=== PATIENT | female | born 1995 | race Caucasian/White ===

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

== ENCOUNTER 2017-05-11 23:55 | Emergency (ER) | payer OTHER ==
[~2017-05-11] VITALS: Ht 157.5 cm; Wt 121.6 kg
[2017-05-11 23:58] VITALS: BP 130/74
--- NOTE | 2017-05-12 00:02 | NUR ---
TO LOBBY, OLIVIA LEDBETTER, A/W BED, ERMAnastacia NOTED
[2017-05-12] MEDS ORDERED: DEXAMETHASONE 10 MG/ML VIAL PO ONE (01:00)
[2017-05-12] MEDS ORDERED: KETOROLAC 30 MG/ML VIAL IM ONE (01:00)
--- NOTE | 2017-05-12 01:00 | NUR ---
Patient being evaluated by at bedside.
--- NOTE | 2017-05-12 01:00 | NUR ---
22Y/F PT. PRESENTS TO ED WITH C/O SORE THROAT X 3 DAYS. NO MED HX. AAO X4, AMBULATORY WITH STDEAY GAIT. RESPIRATIONS ROOM AIR, EVEN AND UNLABORED. C/O SORE THROAT 810. VSS, ER MADE AWARE OF PT. STATUS.
--- NOTE | 2017-05-12 01:30 | NUR ---
Patient discharged with v/s stable. Written and verbal after care instructions given and explained. Patient alert, oriented and verbalized understanding of instructions. Ambulatory with steady gait. All questions addressed prior to discharge. ID band removed. Patient advised to follow up with PMD. Rx of AMOXICILLIN 500 MG, NAPROSYN 500 MG given. Patient educated on indication of medication including possible reaction and side effects. Opportunity to ask questions provided and answered.
[2017-05-12 02:12] VITALS: BP 123/71
== END 2017-05-12 01:20 | disposition home or self-care (01) ==
LOC: MED 23:55
DX: J02.9 Acute pharyngitis, unspecified (principal); H66.91 Otitis media, unspecified, right ear
CPT/HCPCS: 96372; 99283; J1100; J1885

== ENCOUNTER 2017-07-19 23:43 | Emergency (ER) | payer OTHER ==
[~2017-07-19] VITALS: Ht 157.5 cm; Wt 122.5 kg
[2017-07-19 23:46] VITALS: BP 138/92
--- NOTE | 2017-07-19 23:50 | NUR ---
PATIENT PRESENTS TO ED WITH ABDOMINAL/EPIGASTRIC PAIN X4 DAYS . PT DENIES N/V/D; SKIN IS PINK/WARM/DRY; AAOX4 WITH EVEN AND STEADY GAIT; LUNGS CLEAR BL; HR EVEN AND REGULAR; PT DENIES ANY FEVER, CP, SOB, OR COUGH AT THIS TIME; PATIENT STATES PAIN OF 7/10 AT THIS TIME; VSS; PATIENT POSITIONED FOR COMFORT; HOB ELEVATED; BEDRAILS UP X1; BED DOWN. ER MD MADE AWARE OF PT STATUS.
--- NOTE | 2017-07-19 23:55 | NUR ---
PT AMBULATED TO ER BED 09
[2017-07-20] MEDS ORDERED: KETOROLAC 60 MG/2 ML VIAL IM ONE (00:15)
--- NOTE | 2017-07-20 00:21 | NUR ---
Patient discharged with v/s stable. Written and verbal after care instructions given and explained. Patient alert, oriented and verbalized understanding of instructions. Ambulatory with steady gait. All questions addressed prior to discharge. ID band removed. Patient advised to follow up with PMD. Rx of ZANTAC given. Patient educated on indication of medication including possible reaction and side effects. Opportunity to ask questions provided and answered.
[2017-07-20 00:22] VITALS: BP 138/92
== END 2017-07-20 00:21 | disposition home or self-care (01) ==
LOC: MED 23:43
DX: K43.9 Ventral hernia without obstruction or gangrene (principal)
CPT/HCPCS: 81002; 81025; 96372; 99283; J1885

== ENCOUNTER 2017-10-02 00:16 | Emergency (ER) | payer OTHER ==
[~2017-10-02] VITALS: Ht 157.5 cm; Wt 117.9 kg
[2017-10-02 00:24] VITALS: BP 119/57
--- NOTE | 2017-10-02 00:27 | NUR ---
TO BED # 7 AMBULATORY, REPORT GIVEN TO SYED MORENO
[2017-10-02 01:06] LABS: BASOPHILS % (AUTO) 0.2 % (0.0-2.0); EOSINOPHILS # (AUTO) 0.1 K/uL (0-0.4); EOSINOPHILS % (AUTO) 0.6 % (0.0-4.0); HEMATOCRIT 35.7 % (36-48); HEMOGLOBIN 11.9 g/dL (12.0-16.0); LYMPHOCYTES # (AUTO) 2.3 K/uL (2.5-16.5); LYMPHOCYTES % (AUTO) 27.2 % (20.5-51.1); MEAN CORPUSCULAR HEMOGLOBIN 29 pg (27-31); MEAN CORPUSCULAR HGB CONC 33 g/dL (33-37); MEAN CORPUSCULAR VOLUME 87.7 fL (80-94); MONOCYTES # (AUTO) 0.4 K/uL (0.8-1.0); MONOCYTES % (AUTO) 4.8 % (1.7-9.3); NEUTROPHILS # (AUTO) 5.6 K/uL (1.8-7.7); NEUTROPHILS % (AUTO) 67.2 % (42.2-75.2); PLATELET COUNT (AUTO) 257 K/uL (140-450); RED BLOOD CELL COUNT(AUTO) 4.07 MIL/uL (4.20-5.40); WHITE BLOOD COUNT (AUTO) 8.3 K/uL (4.5-11.0)
[2017-10-02 01:20] LABS: ANION GAP 7.9 (8-16); CARBON DIOXIDE 27.7 mmol/L (21-32); CREATININE 0.6 mg/dL (0.6-1.3); POTASSIUM 3.6 mmol/L (3.5-5.1)
--- NOTE | 2017-10-02 01:52 | NUR ---
Patient returned from US.
--- NOTE | 2017-10-02 02:15 | NUR ---
Patient discharged with v/s stable. Written and verbal after care instructions given and explained. Patient verbalized understanding. Ambulatory with steady gait. All questions addressed prior to discharge. Advised to follow up with PMD.
[2017-10-02 02:19] VITALS: BP 119/57
[2017-10-02 03:31] LABS: BILIRUBIN,URINE NEGATIVE (NEGATIVE); BLOOD, URINE 3+ (NEGATIVE); LEUKOCYTE ESTERASE ,URINE 1+ (NEGATIVE); NITRITE, URINE NEGATIVE (NEGATIVE); UGLUCOSE NEGATIVE (NEGATIVE)
[2017-10-02 03:32] LABS: APPEARANCE,URINE BLOODY (CLEAR); COLOR,URINE BLOODY (YELLOW); RBC,URINE TOO NUMEROUS TO COUN /HPF (0-5)
== END 2017-10-02 02:15 | disposition home or self-care (01) ==
LOC: MED 00:16
DX: O03.9 Complete or unspecified spontaneous abortion without complication (principal); Z3A.08 8 weeks gestation of pregnancy
CPT/HCPCS: 36415; 76801; 80048; 81001; 81025; 84702; 85025; 86900; 86901; 87086; 99285

== ENCOUNTER 2017-11-09 20:34 | Emergency (ER) | payer OTHER ==
[~2017-11-09] VITALS: Ht 157.5 cm; Wt 117.0 kg
[2017-11-09 20:53] VITALS: BP 121/88
[2017-11-09] MEDS: KETOROLAC 60 MG/2 ML VIAL IM ONE (22:47)
[2017-11-09 23:06] VITALS: BP 133/59
== END 2017-11-09 23:06 | disposition home or self-care (01) ==
LOC: MED 20:34
DX: S76.012A Strain of muscle, fascia and tendon of left hip, initial encounter (principal); X58.XXXA Exposure to other specified factors, initial encounter; Y93.89 Activity, other specified; Y92.89 Other specified places as the place of occurrence of the external cause; Y99.8 Other external cause status
CPT/HCPCS: 81002; 81025; 96372; 99283; J1885

== ENCOUNTER 2017-11-27 18:52 | Emergency (ER) | payer OTHER ==
[~2017-11-27] VITALS: Ht 157.5 cm; Wt 117.1 kg
--- NOTE | 2017-11-27 18:57 | NUR ---
PT AMBULATES TO BED 4
[2017-11-27 19:00] VITALS: BP 113/52
[2017-11-27] MEDS ORDERED: KETOROLAC 60 MG/2 ML VIAL IM ONE (19:00)
--- NOTE | 2017-11-27 19:04 | NUR ---
C/O RT EAR PAIN 10/10 X 5 DAYS; HAD SIMILAR EPISODE BEFORE; DENIES N/V/D OR DIZZINESS HX; DENIES RX; NONE
[2017-11-27 19:30] VITALS: BP 113/52
--- NOTE | 2017-11-27 19:30 | NUR ---
Patient discharged with v/s stable. Written and verbal after care instructions given and explained. Patient alert, oriented and verbalized understanding of instructions. Ambulatory with steady gait. All questions addressed prior to discharge. ID band removed. Patient advised to follow up with PMD. Rx of MOTRIN AND AMOXICILLIN given. Patient educated on indication of medication including possible reaction and side effects. Opportunity to ask questions provided and answered.
== END 2017-11-27 19:30 | disposition home or self-care (01) ==
LOC: MED 18:52
DX: H66.91 Otitis media, unspecified, right ear (principal)
CPT/HCPCS: 96372; 99283; J1885

== ENCOUNTER 2018-01-25 04:09 | Emergency (ER) | payer OTHER ==
[~2018-01-25] VITALS: Ht 157.5 cm; Wt 116.1 kg
--- NOTE | 2018-01-25 04:23 | NUR ---
PT TAKEN TO BED 8
[2018-01-25 04:26] VITALS: BP 122/70
--- NOTE | 2018-01-25 04:28 | NUR ---
PT BIB SELF C/O RT EAR PAIN UPON WAKING UP THIS AM, DENIES TAKING MEDS , DENIES BLEEDING, DRAINAGE OR TRAUMA. PT SITTING IN BED, TEARFUL, FAMILY AT BEDSIDE. NO PMH
--- NOTE | 2018-01-25 04:33 | NUR ---
DR DYER AT BEDSIDE EVALUATING PT
[2018-01-25] MEDS ORDERED: AMOXICILLIN 500 MG CAP PO ONE (04:35)
[2018-01-25] MEDS ORDERED: IBUPROFEN 800 MG TAB PO ONE (04:35)
[2018-01-25 04:46] VITALS: BP 122/70
--- NOTE | 2018-01-25 04:46 | NUR ---
NO ADVERSE DRUG REACTION NOTED WHEN PT LEFT. EVEN STEADY GAIT.
--- NOTE | 2018-01-25 04:46 | NUR ---
PT LEFT WITH OUT D/C INSTRUCTIONS AND RX. ATTEMPTED TO GIVE PT INSTRUCTIONS SHE KEPT WALKING OUT OF ER LOBBY AND DID NOT ANSWER.
== END 2018-01-25 04:46 | disposition home or self-care (01) ==
LOC: MED 04:09
DX: H60.91 Unspecified otitis externa, right ear (principal); H66.91 Otitis media, unspecified, right ear
CPT/HCPCS: 99283

== ENCOUNTER 2018-02-04 19:57 | Emergency (ER) | payer OTHER ==
[~2018-02-04] VITALS: Ht 157.5 cm; Wt 121.6 kg
[2018-02-04 20:14] VITALS: BP 124/52
--- NOTE | 2018-02-04 20:20 | NUR ---
Patient ambulated to bed 6. RN evaluating patient at bedside.
--- NOTE | 2018-02-04 20:25 | NUR ---
23 yo female comes to er for c/o of ear pain to left ear. pt states she has ear infections seasonally. pt aaox4 sitting up in [facility]. family @ bedside. pt has no other pmh. pt denies taking medication. NKA. pt denies fever chills @ this time. pt states no drainage present @ this time. VSS no acute distress noted.
[2018-02-04] MEDS ORDERED: KETOROLAC 60 MG/2 ML VIAL IM ONE (20:50)
[2018-02-04 21:20] VITALS: BP 119/65
--- NOTE | 2018-02-04 21:25 | NUR ---
Patient discharged with v/s stable. Written and verbal after care instructions given and explained. Patient alert, oriented and verbalized understanding of instructions. Ambulatory with steady gait. All questions addressed prior to discharge. ID band removed. Patient advised to follow up with PMD. Rx of IBU, AMOXICILLIN given. Patient educated on indication of medication including possible reaction and side effects. Opportunity to ask questions provided and answered.
== END 2018-02-04 21:25 | disposition home or self-care (01) ==
LOC: MED 19:57
DX: H66.92 Otitis media, unspecified, left ear (principal); J06.9 Acute upper respiratory infection, unspecified
CPT/HCPCS: 96372; 99283; J1885

== ENCOUNTER 2018-04-26 22:08 | Emergency (ER) | payer OTHER ==
[~2018-04-26] VITALS: Ht 157.5 cm; Wt 117.0 kg
[2018-04-26 23:07] VITALS: BP 110/55
--- NOTE | 2018-04-26 23:10 | NUR ---
AMBULATED TO LOBBY WITH VSS. PROVIDING URINE.
--- NOTE | 2018-04-26 23:26 | NUR ---
PT AMBULATED TO ER BED 03
--- NOTE | 2018-04-26 23:47 | NUR ---
PT PRESENTS TO ED WITH C/O UPPER ABDOMINAL PAIN X 3 WKS. PT STATED SHARP LIKE PAIN WITH NAUSEA; SKIN IS INTACT, PINK/WARM/DRY; AAOX4, PERRL, WITH EVEN AND STEADY GAIT; LUNGS CLEAR BL, BREATHING UNLABORED; HR EVEN AND REGULAR, BL PERIPHERAL PULSES PRESENT; BS ACTIVE X4, NO TENDERNESS TO PALPATION, NO HEPATOSPLENOMEGALLY PALPATED, RESONANT TO PERCUSSION; PT DENIES ANY FEVER, CP, SOB, OR COUGH AT THIS TIME; PT STATES 0/10 PAIN AT THIS TIME; VSS; PATIENT POSITIONED FOR COMFORT; HOB ELEVATED; BEDRAILS UP X2; BED DOWN.
[2018-04-26 23:56] LABS: APPEARANCE,URINE CLEAR (CLEAR); BILIRUBIN,URINE NEGATIVE (NEGATIVE); BLOOD, URINE NEGATIVE (NEGATIVE); COLOR,URINE YELLOW (YELLOW); LEUKOCYTE ESTERASE ,URINE NEGATIVE (NEGATIVE); NITRITE, URINE NEGATIVE (NEGATIVE); PH,URINE 7.5 (5.0-9.0); UGLUCOSE NEGATIVE (NEGATIVE)
[2018-04-27 01:29] VITALS: BP 109/53
--- NOTE | 2018-04-27 01:29 | NUR ---
Patient discharged with v/s stable. Written and verbal after care instructions given and explained. Patient alert, oriented and verbalized understanding of instructions. Ambulatory with steady gait. All questions addressed prior to discharge. ID band removed. Patient advised to follow up with PMD. Rx of ZANTAC 300 MG given. Patient educated on indication of medication including possible reaction and side effects. Opportunity to ask questions provided and answered.
== END 2018-04-27 01:29 | disposition home or self-care (01) ==
LOC: MED 22:08
DX: O99.611 Diseases of the digestive system complicating pregnancy, first trimester (principal); K29.70 Gastritis, unspecified, without bleeding; Z3A.01 Less than 8 weeks gestation of pregnancy
CPT/HCPCS: 76801; 81003; 81025; 99284; Q0092

== ENCOUNTER 2018-05-03 23:05 | Emergency (ER) | payer OTHER ==
[~2018-05-03] VITALS: Ht 157.5 cm; Wt 115.7 kg
[2018-05-03 23:17] VITALS: BP 109/52
--- NOTE | 2018-05-03 23:18 | NUR ---
PT AMBULATORY TO ER LOBBY W/ STEADY GAIT IN STABLE CONDITION.
--- NOTE | 2018-05-04 00:15 | NUR ---
PT PRESENTS TO ED WITH C/O RT EARACHE. PT ALSO STATES SHE IS 8 WEEKS . PAIN 11/24
--- NOTE | 2018-05-04 00:16 | NUR ---
PT TO ER BED 10
--- NOTE | 2018-05-04 02:05 | NUR ---
PATIENT LEFT WITHOUT BEING SEEN BY DR. EDUARDO. NO FURTHER CARE PROVIDED FOR PATIENT.
== END 2018-05-04 02:05 | disposition left against medical advice (07) ==
LOC: MED 23:05
DX: H92.01 Otalgia, right ear (principal); Z53.21 Procedure and treatment not carried out due to patient leaving prior to being seen by health care provider

== ENCOUNTER 2018-06-26 22:17 | Emergency (ER) | payer OTHER ==
[~2018-06-26] VITALS: Ht 157.5 cm; Wt 113.9 kg
[2018-06-26 22:20] VITALS: BP 105/43
--- NOTE | 2018-06-26 22:21 | NUR ---
PT AMBULATED TO BED 07.
--- NOTE | 2018-06-26 22:25 | NUR ---
23 y/o F, 15 weeks , presented to ED with c/o suprapubic abdominal pain x3 days. 10/10 pain, sharp and constant. pain radiates to lower back, only during ambulation. suprapubic area tender to touch. denies vaginal bleeding. bed in lowest postion. bedrail x1 up. ERMD notified. will continue to monitor.
[2018-06-26 22:57] LABS: BASOPHILS % (AUTO) 0.1 % (0.0-2.0); EOSINOPHILS % (AUTO) 0.5 % (0.0-4.0); HEMATOCRIT 30.7 % (36-48); HEMOGLOBIN 10.4 g/dL (12.0-16.0); LYMPHOCYTES # (AUTO) 1.7 K/uL (2.5-16.5); LYMPHOCYTES % (AUTO) 25.5 % (20.5-51.1); MEAN CORPUSCULAR HEMOGLOBIN 31 pg (27-31); MEAN CORPUSCULAR HGB CONC 34 g/dL (33-37); MEAN CORPUSCULAR VOLUME 89.9 fL (80-94); MONOCYTES # (AUTO) 0.4 K/uL (0.8-1.0); NEUTROPHILS # (AUTO) 4.6 K/uL (1.8-7.7); NEUTROPHILS % (AUTO) 67.9 % (42.2-75.2); PLATELET COUNT (AUTO) 203 K/uL (140-450); RED BLOOD CELL COUNT(AUTO) 3.42 MIL/uL (4.20-5.40); RED CELL DISTRIBUTION WIDTH 14.5 % (11.6-13.7); WHITE BLOOD COUNT (AUTO) 6.7 K/uL (4.8-10.8)
[2018-06-26 22:59] LABS: APPEARANCE,URINE CLEAR (CLEAR); BILIRUBIN,URINE NEGATIVE (NEGATIVE); BLOOD, URINE NEGATIVE (NEGATIVE); COLOR,URINE YELLOW (YELLOW); LEUKOCYTE ESTERASE ,URINE NEGATIVE (NEGATIVE); NITRITE, URINE NEGATIVE (NEGATIVE); UGLUCOSE NEGATIVE (NEGATIVE)
[2018-06-26 23:06] LABS: ANION GAP 12.4 (8-16); CARBON DIOXIDE 25.2 mmol/L (21-32); CREATININE 0.7 mg/dL (0.6-1.3); POTASSIUM 3.6 mmol/L (3.5-5.1)
[2018-06-26 23:13] LABS: ALBUMIN 2.8 g/dL (3.4-5.0); TOTAL BILIRUBIN 0.2 mg/dL (0.0-1.0)
[2018-06-27] MEDS ORDERED: ACETAMINOPHEN EXTRA STRENGTH 500 MG TAB PO ONE (00:15)
--- NOTE | 2018-06-27 00:19 | NUR ---
Pt still has c/o 11/[address] Vegas notified.
== END 2018-06-27 00:50 | disposition home or self-care (01) ==
LOC: MED 22:17
DX: O26.892 Other specified pregnancy related conditions, second trimester (principal); R10.30 Lower abdominal pain, unspecified; Z3A.15 15 weeks gestation of pregnancy
CPT/HCPCS: 36415; 76801; 80053; 81003; 81025; 84702; 85025; 86900; 86901; 99284; Q0092

== ENCOUNTER 2018-09-22 20:06 | Observation (INO) | payer OTHER ==
[~2018-09-22] VITALS: Ht 157.5 cm; Wt 116.1 kg
[2018-09-22 20:14] VITALS: BP 110/59
--- NOTE | 2018-09-22 20:18 | NUR ---
PT TAKEN TO L&D VIA W/C. REPORT GIVEN TO YOLANDA MORENO.
[2018-09-22] MEDS ORDERED: FAMOTIDINE 20 MG TAB PO STA (21:00)
[2018-09-22] MEDS ORDERED: ALUMINUM HYD/MAG/SIMETHICONE 30 ML UDC PO STA (21:00)
[2018-09-22] MEDS ORDERED: PREN-380 PO (21:07)
[2018-09-22 21:09] VITALS: BP 115/76
[2018-09-22] MEDS ORDERED: ALUMINUM HYD/MAG/SIMETHICONE 30 ML UDC ONE (21:26)
[2018-09-22 21:59] LABS: BASOPHILS % (AUTO) 0.1 % (0.0-2.0); EOSINOPHILS % (AUTO) 0.5 % (0.0-4.0); HEMATOCRIT 26.9 % (36-48); LYMPHOCYTES # (AUTO) 1.5 K/uL (2.5-16.5); LYMPHOCYTES % (AUTO) 19.1 % (20.5-51.1); MEAN CORPUSCULAR HEMOGLOBIN 29 pg (27-31); MEAN CORPUSCULAR HGB CONC 34 g/dL (33-37); MEAN CORPUSCULAR VOLUME 87.2 fL (80-94); MONOCYTES # (AUTO) 0.5 K/uL (0.8-1.0); MONOCYTES % (AUTO) 6.4 % (1.7-9.3); NEUTROPHILS # (AUTO) 5.9 K/uL (1.8-7.7); NEUTROPHILS % (AUTO) 73.9 % (42.2-75.2); PLATELET COUNT (AUTO) 234 K/uL (140-450); RED BLOOD CELL COUNT(AUTO) 3.09 MIL/uL (4.20-5.40); RED CELL DISTRIBUTION WIDTH 14.9 % (11.6-13.7); WHITE BLOOD COUNT (AUTO) 7.9 K/uL (4.8-10.8)
[2018-09-22 22:01] LABS: APPEARANCE,URINE CLEAR (CLEAR); BILIRUBIN,URINE NEGATIVE (NEGATIVE); BLOOD, URINE NEGATIVE (NEGATIVE); COLOR,URINE YELLOW (YELLOW); LEUKOCYTE ESTERASE ,URINE NEGATIVE (NEGATIVE); NITRITE, URINE NEGATIVE (NEGATIVE); UGLUCOSE NEGATIVE (NEGATIVE)
[2018-09-22 22:13] LABS: ANION GAP 13.3 (8-16); CARBON DIOXIDE 23.2 mmol/L (21-32); CREATININE 0.5 mg/dL (0.6-1.3); POTASSIUM 3.5 mmol/L (3.5-5.1)
[2018-09-22] MEDS ORDERED: FAMOTIDINE 20 MG TAB ONE (22:15)
[2018-09-22] MEDS ORDERED: LACTATED RINGERS 1,000 ML IV SCH (22:15)
[2018-09-22 22:19] LABS: ALBUMIN 2.6 g/dL (3.4-5.0); TOTAL BILIRUBIN 0.3 mg/dL (0.0-1.0)
== END 2018-09-23 00:44 | disposition home or self-care (01) ==
LOC: MED 20:06 → MLD 20:25
PROVIDERS: ADMIT Obstetrics & Gynecology; ATTEND Obstetrics & Gynecology
DX: O21.2 Late vomiting of pregnancy (principal); O26.893 Other specified pregnancy related conditions, third trimester; R10.13 Epigastric pain; R42 Dizziness and giddiness; O99.213 Obesity complicating pregnancy, third trimester; O26.813 Pregnancy related exhaustion and fatigue, third trimester; O26.53 Maternal hypotension syndrome, third trimester; Z3A.28 28 weeks gestation of pregnancy
CPT/HCPCS: 36415; 80053; 81003; 85025; 96360; 96361; 99281; G0378

== ENCOUNTER 2019-03-30 00:29 | Emergency (ER) | payer OTHER ==
[~2019-03-30] VITALS: Ht 157.5 cm; Wt 116.1 kg
[~2019-03-30 00:29] MED LIST: PREN-380 PO
[2019-03-30 00:43] VITALS: BP 125/66
--- NOTE | 2019-03-30 00:45 | NUR ---
TO LOBBY A/W BED AMBULATORY
--- NOTE | 2019-03-30 01:56 | NUR ---
ambulated to bed 11. accompanied by family.
--- NOTE | 2019-03-30 02:05 | NUR ---
Dr. Miguel examining patient.
--- NOTE | 2019-03-30 02:07 | NUR ---
PT BIB MOM C/O FEVER, N/V, BODY ACHES, POOR APPETITE AND DRY COUGH X3 DAY. + FLU A. DR LEE AT BEDSIDE
[2019-03-30] MEDS ORDERED: ACETAMINOPHEN 325 MG TAB PO ONE (02:35)
[2019-03-30] MEDS ORDERED: IBUPROFEN 600 MG TAB PO ONE (02:35)
[2019-03-30 03:07] VITALS: BP 111/64
--- NOTE | 2019-03-30 03:07 | NUR ---
Patient discharged with v/s stable. Written and verbal after care instructions given and explained. Patient alert, oriented and verbalized understanding of instructions. Ambulatory with steady gait. All questions addressed prior to discharge. ID band removed. Patient advised to follow up with PMD. Rx of TAMIFLU AND MOTRIN given. Patient educated on indication of medication including possible reaction and side effects. Opportunity to ask questions provided and answered.
== END 2019-03-30 03:07 | disposition home or self-care (01) ==
LOC: MED 00:29
DX: J10.1 Influenza due to other identified influenza virus with other respiratory manifestations (principal); H92.01 Otalgia, right ear; F14.20 Cocaine dependence, uncomplicated; Z79.899 Other long term (current) drug therapy
CPT/HCPCS: 87804; 99283

== ENCOUNTER 2019-09-10 08:44 | Observation (INO) | payer OTHER ==
[~2019-09-10] VITALS: Ht 157.5 cm; Wt 114.8 kg
[2019-09-10] MEDS ORDERED: MORPHINE SULFATE 4 MG/ML SYR IVP PRN (09:35)
[2019-09-10] MEDS ORDERED: LACTATED RINGERS 1,000 ML IV SCH (09:35)
[2019-09-10 09:44] VITALS: BP 111/51
[2019-09-10] MEDS ORDERED: FAMOTIDINE 20 MG/2 ML VIAL IV SCH (10:00)
[2019-09-10 10:08] LABS: BASOPHILS % (AUTO) 0.2 % (0.0-2.0); EOSINOPHILS % (AUTO) 0.4 % (0.0-4.0); HEMATOCRIT 26.3 % (36-48); HEMOGLOBIN 8.3 g/dL (12.0-16.0); LYMPHOCYTES # (AUTO) 1.3 K/uL (2.5-16.5); LYMPHOCYTES % (AUTO) 16.6 % (20.5-51.1); MEAN CORPUSCULAR HEMOGLOBIN 26 pg (27-31); MEAN CORPUSCULAR HGB CONC 32 g/dL (33-37); MEAN CORPUSCULAR VOLUME 81.3 fL (80-94); MONOCYTES # (AUTO) 0.5 K/uL (0.8-1.0); MONOCYTES % (AUTO) 6.3 % (1.7-9.3); NEUTROPHILS # (AUTO) 6.1 K/uL (1.8-7.7); NEUTROPHILS % (AUTO) 76.5 % (42.2-75.2); PLATELET COUNT (AUTO) 232 K/uL (140-450); RED BLOOD CELL COUNT(AUTO) 3.24 MIL/uL (4.20-5.40); RED CELL DISTRIBUTION WIDTH 16.4 % (11.6-13.7)
[2019-09-10] MEDS ORDERED: PANTOPRAZOLE 40 MG INJ VIAL IVP SCH (10:30)
[2019-09-10 12:58] LABS: CARBON DIOXIDE 22.7 mmol/L (21-32); CREATININE 0.7 mg/dL (0.6-1.3); POTASSIUM 3.7 mmol/L (3.5-5.1); TOTAL BILIRUBIN 0.4 mg/dL (0.0-1.0)
[2019-09-10 12:59] LABS: ALBUMIN 2.7 g/dL (3.4-5.0)
== END 2019-09-10 16:35 | disposition home or self-care (01) ==
LOC: MLD 08:44
PROVIDERS: ADMIT Obstetrics & Gynecology; ATTEND Obstetrics & Gynecology
DX: O99.612 Diseases of the digestive system complicating pregnancy, second trimester (principal); K80.20 Calculus of gallbladder without cholecystitis without obstruction; O34.219 Maternal care for unspecified type scar from previous cesarean delivery; Z3A.22 22 weeks gestation of pregnancy
CPT/HCPCS: 36415; 76705; 76805; 80053; 81000; 82150; 83690; 85025; 86886; 86900; 86901; 96365; 96375; C9113; G0378; J2270; J3490; J7120; Q0092; 96374

== ENCOUNTER 2020-02-18 08:34 | Emergency (ER) | payer MEDICAID, OTHER ==
[~2020-02-18] VITALS: Ht 157.5 cm; Wt 99.8 kg
[2020-02-18 08:42] VITALS: BP 114/71
--- NOTE | 2020-02-18 08:48 | NUR ---
PT TO CHAIR A TO BE SEEN.
[2020-02-18] MEDS ORDERED: KETOROLAC 30 MG/ML VIAL IM ONE (09:00)
--- NOTE | 2020-02-18 09:14 | NUR ---
25 y/o female from home c/o epigastric pain and nausea since 0500. Pt states pain was unprovoked upon waking today. + nausea. Denies vomiting/diarrhea. States 10/10 sharp pain, has not taken any medication for pain. Afebrile upon arrival. Skin warm, dry, intact. VSS medhx: denies
[2020-02-18 10:08] LABS: BASOPHILS % (AUTO) 0.3 % (0.0-2.0); EOSINOPHILS % (AUTO) 0.6 % (0.0-4.0); HEMATOCRIT 32.2 % (36-48); HEMOGLOBIN 10.4 g/dL (12.0-16.0); LYMPHOCYTES # (AUTO) 1.4 K/uL (2.5-16.5); LYMPHOCYTES % (AUTO) 22.5 % (20.5-51.1); MEAN CORPUSCULAR HEMOGLOBIN 26 pg (27-31); MEAN CORPUSCULAR HGB CONC 32 g/dL (33-37); MEAN CORPUSCULAR VOLUME 79.1 fL (80-94); MONOCYTES # (AUTO) 0.3 K/uL (0.8-1.0); MONOCYTES % (AUTO) 5.8 % (1.7-9.3); NEUTROPHILS # (AUTO) 4.3 K/uL (1.8-7.7); NEUTROPHILS % (AUTO) 70.8 % (42.2-75.2); PLATELET COUNT (AUTO) 222 K/uL (140-450); RED BLOOD CELL COUNT(AUTO) 4.07 MIL/uL (4.20-5.40); RED CELL DISTRIBUTION WIDTH 23.6 % (11.6-13.7); WHITE BLOOD COUNT (AUTO) 6.1 K/uL (4.8-10.8)
--- NOTE | 2020-02-18 10:25 | NUR ---
20G IV placed to left ac with good blood return.
[2020-02-18] MEDS ORDERED: ONDANSETRON 4 MG/2 ML VIAL IVP ONE (10:30)
[2020-02-18] MEDS ORDERED: MORPHINE SULFATE 4 MG/ML SYR IVP ONE (10:30)
[2020-02-18 10:33] LABS: ALBUMIN 3.7 g/dL (3.4-5.0); CREATININE 0.7 mg/dL (0.6-1.3); TOTAL BILIRUBIN 0.7 mg/dL (0.0-1.0)
[2020-02-18] MEDS ORDERED: PIPERACILLIN/TAZOBACTAM 3.375 GM VIAL IV ONE (10:40)
[2020-02-18] MEDS ORDERED: PIPERACILLIN/TAZOBACTAM 3.375 GM in DEXTROSE 5% 50 ML IV SCH (10:45)
--- NOTE | 2020-02-18 11:19 | NUR ---
Decrease in pain after receiving Morphine IV push. VSS will continue to monitor
--- NOTE | 2020-02-18 11:41 | NUR ---
Dr Jose at [facility] speaking with patient
--- NOTE | 2020-02-18 14:03 | NUR ---
Patient seated upright in chair A awake and alert. Denies pain at this time. VSS. Will continue to monitor
[2020-02-18 14:06] VITALS: BP 114/71
--- NOTE | 2020-02-18 14:07 | NUR ---
Patient discharged with v/s stable. Written and verbal after care instructions given and explained. Patient alert, oriented and verbalized understanding of instructions. Ambulatory with steady gait. All questions addressed prior to discharge. ID band removed. Patient advised to follow up with PMD. Rx of ciprofloxacin hydrochloride 500mg tab BID, norco 5mg-325mg 2 tabs q6h given. Patient educated on indication of medication including possible reaction and side effects. Opportunity to ask questions provided and answered.
== END 2020-02-18 14:07 | disposition home or self-care (01) ==
LOC: MED 08:34 → MMU 13:14 → UNDOADMIN 13:14 → UNDODISIN 14:07
DX: K83.8 Other specified diseases of biliary tract (principal); R10.11 Right upper quadrant pain; Z79.899 Other long term (current) drug therapy
CPT/HCPCS: 36415; 76705; 80053; 81002; 81025; 83690; 85025; 96365; 96372; 96375; 99285; J1885; J2270; J2405; J2543; J7060; 96374

== ENCOUNTER 2020-08-23 09:34 | Emergency (ER) | payer MEDICAID, OTHER ==
[~2020-08-23] VITALS: Ht 157.5 cm; Wt 95.7 kg
[2020-08-23 09:47] VITALS: BP 116/66
--- NOTE | 2020-08-23 09:48 | NUR ---
pt ambulated to bed 09.
[2020-08-23] MEDS ORDERED: KETOROLAC 30 MG/ML VIAL IVP ONE (10:10)
--- NOTE | 2020-08-23 10:20 | NUR ---
25 YEAR OLD FEMALE COMPLAINS OF ON/OFF ABDOMINAL PAIN X MONTHS THAT GOT WORSE YESTERDAY. PT STATES HISTORY OF GALLSTONES AND HAS NOT HAD SURGERY TO REMOVE. PT DENIES NAUSEA, VOMITTING. PT AOX4, BREATHING EVEN AND UNLABORED, SKIN WARM AND DRY. BED IN LOWEST POSITION, LOCKED, BED RAIL UPX1. PMH - GALLSTONES, C SECTION ALLERGIES - NKA
[2020-08-23 10:41] LABS: ALBUMIN 3.9 g/dL (3.4-5.0); ANION GAP 12.7 (8-16); CARBON DIOXIDE 25.4 mmol/L (21-32); CREATININE 0.7 mg/dL (0.6-1.3); POTASSIUM 4.1 mmol/L (3.5-5.1); TOTAL BILIRUBIN 0.8 mg/dL (0.0-1.0)
[2020-08-23 10:59] LABS: BASOPHILS % (AUTO) 0.1 % (0.0-2.0); EOSINOPHILS # (AUTO) 0.1 K/uL (0-0.4); HEMATOCRIT 31.6 % (36-48); HEMOGLOBIN 10.3 g/dL (12.0-16.0); LYMPHOCYTES # (AUTO) 1.7 K/uL (2.5-16.5); LYMPHOCYTES % (AUTO) 29.4 % (20.5-51.1); MEAN CORPUSCULAR HEMOGLOBIN 27 pg (27-31); MEAN CORPUSCULAR HGB CONC 33 g/dL (33-37); MEAN CORPUSCULAR VOLUME 82.1 fL (80-94); MONOCYTES # (AUTO) 0.3 K/uL (0.8-1.0); MONOCYTES % (AUTO) 5.5 % (1.7-9.3); NEUTROPHILS # (AUTO) 3.6 K/uL (1.8-7.7); PLATELET COUNT (AUTO) 238 K/uL (140-450); RED BLOOD CELL COUNT(AUTO) 3.85 MIL/uL (4.20-5.40); RED CELL DISTRIBUTION WIDTH 16.2 % (11.6-13.7); WHITE BLOOD COUNT (AUTO) 5.7 K/uL (4.8-10.8)
--- NOTE | 2020-08-23 12:13 | NUR ---
ANGELA SWAB SENT TO LAB
[2020-08-23] MEDS ORDERED: ACET-8386 PO (12:14)
[2020-08-23] MEDS ORDERED: NAPR-54 PO (12:14)
[2020-08-23 12:27] VITALS: BP 118/65
--- NOTE | 2020-08-23 12:27 | NUR ---
Patient discharged with v/s stable. Written and verbal after care instructions about cholelithiasis given and explained. Patient alert, oriented and verbalized understanding of instructions. Ambulatory with steady gait. All questions addressed prior to discharge. ID band removed. Patient advised to follow up with PMD. Rx of norco, naprosyn given. Patient educated on indication of medication including possible reaction and side effects. Opportunity to ask questions provided and answered.
== END 2020-08-23 12:27 | disposition home or self-care (01) ==
LOC: MED 09:34
DX: K80.20 Calculus of gallbladder without cholecystitis without obstruction (principal); Z20.822 Contact with and (suspected) exposure to COVID-19; Z98.890 Other specified postprocedural states; Z79.899 Other long term (current) drug therapy
CPT/HCPCS: 36415; 76705; 80053; 81002; 81025; 83690; 85025; 87426; 96374; 99284; J1885

== ENCOUNTER 2020-12-11 04:09 | Inpatient (IN) | payer OTHER, SELFPAY ==
[~2020-12-11] VITALS: Ht 157.5 cm; Wt 122.9 kg
[~2020-12-11 04:09] MED LIST changes: +ACET-8386 PO; +NAPR-54 PO
[2020-12-11 04:18] VITALS: BP 118/82
[2020-12-11] MEDS ORDERED: PANTOPRAZOLE 40 MG INJ VIAL IVP ONE (04:25)
[2020-12-11] MEDS ORDERED: ONDANSETRON 4 MG/2 ML VIAL IVP ONE (04:25)
[2020-12-11] MEDS ORDERED: NACL 0.9% 1,000 ML IV ONE (04:25)
[2020-12-11] MEDS ORDERED: MORPHINE SULFATE 2 MG/ML SYR IVP ONE ×2 (04:25→05:50)
[2020-12-11 05:20] LABS: ALBUMIN 3.8 g/dL (3.4-5.0); ANION GAP 14.1 (8-16); CARBON DIOXIDE 24.8 mmol/L (21-32); CREATININE 0.7 mg/dL (0.6-1.3); POTASSIUM 3.9 mmol/L (3.5-5.1); TOTAL BILIRUBIN 0.3 mg/dL (0.0-1.0)
[2020-12-11 05:24] LABS: BASOPHILS % (AUTO) 0.3 % (0.0-2.0); EOSINOPHILS # (AUTO) 0.1 K/uL (0-0.4); EOSINOPHILS % (AUTO) 0.9 % (0.0-4.0); HEMATOCRIT 31.7 % (36-48); HEMOGLOBIN 10.2 g/dL (12.0-16.0); LYMPHOCYTES # (AUTO) 2.3 K/uL (2.5-16.5); LYMPHOCYTES % (AUTO) 33.9 % (20.5-51.1); MEAN CORPUSCULAR HEMOGLOBIN 26 pg (27-31); MEAN CORPUSCULAR HGB CONC 32 g/dL (33-37); MEAN CORPUSCULAR VOLUME 81.5 fL (80-94); MONOCYTES # (AUTO) 0.4 K/uL (0.8-1.0); MONOCYTES % (AUTO) 5.5 % (1.7-9.3); NEUTROPHILS % (AUTO) 59.4 % (42.2-75.2); PLATELET COUNT (AUTO) 267 K/uL (140-450); RED BLOOD CELL COUNT(AUTO) 3.89 MIL/uL (4.20-5.40); RED CELL DISTRIBUTION WIDTH 16.8 % (11.6-13.7); WHITE BLOOD COUNT (AUTO) 6.7 K/uL (4.8-10.8)
[2020-12-11] MEDS ORDERED: MORPHINE SULFATE 2 MG/ML SYR ONE (05:51)
[2020-12-11] MEDS ORDERED: ONDANSETRON 4 MG/2 ML VIAL IVP PRN (09:35)
[2020-12-11] MEDS ORDERED: HYDROcodone/APAP 5/325 MG 1 TAB TAB PO PRN (09:35)
[2020-12-11] MEDS ORDERED: ACETAMINOPHEN 325 MG TAB PO PRN (09:35)
[2020-12-11] MEDS ORDERED: MORPHINE SULFATE 4 MG/ML SYR IVP PRN (09:35)
[2020-12-11 11:14] LABS: BILIRUBIN,URINE NEGATIVE (NEGATIVE); BLOOD, URINE NEGATIVE (NEGATIVE); COLOR,URINE YELLOW (YELLOW); LEUKOCYTE ESTERASE ,URINE NEGATIVE (NEGATIVE); NITRITE, URINE NEGATIVE (NEGATIVE); UGLUCOSE NEGATIVE (NEGATIVE)
[2020-12-11] MEDS: NACL 0.9% 1,000 ML IV SCH ×2 (11:18→22:05)
[2020-12-11 11:25] LABS: APPEARANCE,URINE SLIGHTLY CLOUDY (CLEAR)
[2020-12-11 11:28] LABS: RBC,URINE 0-5 /HPF (0-5); WBC,URINE 0-5 /HPF (0-5)
[2020-12-11 20:00] VITALS: BP 114/51
[2020-12-12 04:00] VITALS: BP 103/40
[2020-12-12 06:58] LABS: ALBUMIN 3.1 g/dL (3.4-5.0); ANION GAP 11.7 (8-16); CARBON DIOXIDE 24.3 mmol/L (21-32); CREATININE 0.7 mg/dL (0.6-1.3); MAGNESIUM 1.9 mg/dL (1.8-2.4); TOTAL BILIRUBIN 0.3 mg/dL (0.0-1.0)
[2020-12-12 08:00] VITALS: BP 106/66
[2020-12-12] MEDS ORDERED: ONDA4TAB PO (08:51)
[2020-12-12] MEDS ORDERED: ACET-1182 PO (08:51)
[2020-12-12] MEDS: NACL 0.9% 1,000 ML IV SCH (09:51)
== END 2020-12-12 14:40 | disposition home or self-care (01) ==
LOC: MED 04:09 → EDBEDREQSVC 09:32 → MMU 09:35 → MTU 11:52 → OBSVTOIN 12-12 11:53
PROVIDERS: ADMIT Student in an Organized Health Care Education/Training Program; ATTEND Student in an Organized Health Care Education/Training Program
DX: K80.70 Calculus of gallbladder and bile duct without cholecystitis without obstruction (principal); E83.51 Hypocalcemia; E66.01 Morbid (severe) obesity due to excess calories; Z20.822 Contact with and (suspected) exposure to COVID-19; D64.9 Anemia, unspecified; E88.09 Other disorders of plasma-protein metabolism, not elsewhere classified; Z68.42 Body mass index [BMI] 45.0-49.9, adult
CPT/HCPCS: 96361; 96374; 96375; 96376; 99285; G0378; 36415; 76705; 78445; 80053; 81001; 83690; 83735; 84703; 85025; 87081; A9510; C9113; J2270; J2405; Q0092

== ENCOUNTER 2021-10-01 08:50 | Emergency (ER) | payer OTHER ==
[~2021-10-01] VITALS: Ht 157.5 cm; Wt 127.0 kg
[~2021-10-01 08:50] MED LIST changes: +ACET-1182 PO; -ACET-8386 PO; -NAPR-54 PO; +ONDA4TAB PO; -PREN-380 PO
[2021-10-01 09:00] VITALS: BP 145/72
--- NOTE | 2021-10-01 09:09 | NUR ---
PT AMBULATED TO BED 11
--- NOTE | 2021-10-01 09:10 | NUR ---
DR BURRIS AT BEDSIDE FOR EVALUATION
[2021-10-01] MEDS ORDERED: NACL 0.9% 1,000 ML IV ONE (09:15)
[2021-10-01] MEDS ORDERED: ONDANSETRON 4 MG/2 ML VIAL IVP ONE (09:15)
[2021-10-01] MEDS ORDERED: MORPHINE SULFATE 4 MG/ML SYR IVP ONE (09:15)
--- NOTE | 2021-10-01 09:15 | NUR ---
26 Y/O FEMALE C/O RUQ PAIN X LAST NIGHT. NON-RADIATING 10/10 SHARP, CONSTANT. DENIES TAKING MEDICATION FOR PAIN. +1 EPISODE OF VOMITING UPON ARRIVAL. DENIES FEVER, CHILLS, CP, SOB, NAUSEA, OR DIARRHEA. STATES SIMILAR SYMPTOMS IN THE PAST HAS HX OF GALLSTONES. NKA
--- NOTE | 2021-10-01 09:26 | NUR ---
LAB AT BEDSIDE
[2021-10-01 09:51] LABS: BASOPHILS % (AUTO) 0.2 % (0.0-2.0); EOSINOPHILS # (AUTO) 0.1 K/uL (0-0.4); EOSINOPHILS % (AUTO) 1.1 % (0.0-4.0); HEMOGLOBIN 9.6 g/dL (12.0-16.0); LYMPHOCYTES % (AUTO) 31.9 % (20.5-51.1); MEAN CORPUSCULAR HEMOGLOBIN 25 pg (27-31); MEAN CORPUSCULAR HGB CONC 32 g/dL (33-37); MEAN CORPUSCULAR VOLUME 78.9 fL (80-94); MONOCYTES # (AUTO) 0.3 K/uL (0.8-1.0); MONOCYTES % (AUTO) 5.4 % (1.7-9.3); NEUTROPHILS # (AUTO) 3.8 K/uL (1.8-7.7); NEUTROPHILS % (AUTO) 61.4 % (42.2-75.2); PLATELET COUNT (AUTO) 260 K/uL (140-450); RED CELL DISTRIBUTION WIDTH 17.9 % (11.6-13.7); WHITE BLOOD COUNT (AUTO) 6.3 K/uL (4.8-10.8)
[2021-10-01 09:56] LABS: ALBUMIN 3.5 g/dL (3.4-5.0); ANION GAP 11.6 (8-16); CARBON DIOXIDE 27.2 mmol/L (21-32); CREATININE 0.9 mg/dL (0.6-1.3); POTASSIUM 3.8 mmol/L (3.5-5.1); TOTAL BILIRUBIN 0.5 mg/dL (0.0-1.0)
--- NOTE | 2021-10-01 10:41 | NUR ---
pt resting in bed with eyes closed, responds to verbal stimuli, reports improvement in pain since medication. All needs met at this time. Bed in low with neftaly side rails up, call light in reach.
[2021-10-01] MEDS ORDERED: ONDA-188 PO (11:17)
[2021-10-01] MEDS ORDERED: ACET-9527 PO (11:17)
[2021-10-01] MEDS ORDERED: IBUP-2213 PO (11:17)
[2021-10-01] MEDS ORDERED: ACET-8386 PO (11:18)
--- NOTE | 2021-10-01 11:35 | NUR ---
Patient discharged with v/s stable. Written and verbal after care instructions given and explained. Patient alert, oriented and verbalized understanding of instructions. Ambulatory with steady gait. All questions addressed prior to discharge. ID band removed. Patient advised to follow up with PMD. Rx of NORCO,IBU, ZOFRAN given. Patient educated on indication of medication including possible reaction and side effects. Opportunity to ask questions provided and answered.
[2021-10-01 11:43] VITALS: BP 99/42
== END 2021-10-01 11:35 | disposition home or self-care (01) ==
LOC: MED 08:50
DX: K80.20 Calculus of gallbladder without cholecystitis without obstruction (principal)
CPT/HCPCS: 36415; 76705; 80053; 83690; 84702; 85025; 96361; 96374; 96375; 99284; J2270; J2405; J7030; Q0092

== ENCOUNTER 2021-10-01 19:39 | Inpatient (IN) | payer OTHER ==
[~2021-10-01] VITALS: Ht 157.5 cm; Wt 129.6 kg
[~2021-10-01 19:39] MED LIST changes: +ACET-8386 PO; +ACET-9527 PO; +IBUP-2213 PO; +ONDA-188 PO
[2021-10-01 20:02] VITALS: BP 119/62
[2021-10-01] MEDS ORDERED: MORPHINE SULFATE 4 MG/ML SYR IVP ONE ×2 (20:25→21:35)
[2021-10-01] MEDS ORDERED: KETOROLAC 30 MG/ML VIAL IVP ONE (20:25)
[2021-10-01] MEDS ORDERED: NACL 0.9% 1,000 ML IV ONE (20:25)
--- NOTE | 2021-10-01 20:27 | NUR ---
PT AMBULATED TO BED WITH NURSE
[2021-10-01 20:36] LABS: BASOPHILS % (AUTO) 0.1 % (0.0-2.0); EOSINOPHILS % (AUTO) 0.1 % (0.0-4.0); HEMATOCRIT 32.1 % (36-48); HEMOGLOBIN 10.3 g/dL (12.0-16.0); LYMPHOCYTES # (AUTO) 1.2 K/uL (2.5-16.5); LYMPHOCYTES % (AUTO) 14.2 % (20.5-51.1); MEAN CORPUSCULAR HEMOGLOBIN 25 pg (27-31); MEAN CORPUSCULAR HGB CONC 32 g/dL (33-37); MEAN CORPUSCULAR VOLUME 78.9 fL (80-94); MONOCYTES # (AUTO) 0.2 K/uL (0.8-1.0); MONOCYTES % (AUTO) 2.6 % (1.7-9.3); NEUTROPHILS # (AUTO) 6.8 K/uL (1.8-7.7); PLATELET COUNT (AUTO) 278 K/uL (140-450); RED BLOOD CELL COUNT(AUTO) 4.07 MIL/uL (4.20-5.40); WHITE BLOOD COUNT (AUTO) 8.2 K/uL (4.8-10.8)
[2021-10-01 20:55] LABS: ALBUMIN 3.3 g/dL (3.4-5.0); ANION GAP 9.8 (8-16); CARBON DIOXIDE 27.7 mmol/L (21-32); CREATININE 0.8 mg/dL (0.6-1.3); POTASSIUM 4.5 mmol/L (3.5-5.1); TOTAL BILIRUBIN 1.4 mg/dL (0.0-1.0)
[2021-10-01 21:07] LABS: APPEARANCE,URINE SL CLOUDY (CLEAR); BILIRUBIN,URINE 1+ (NEGATIVE); BLOOD, URINE NEGATIVE (NEGATIVE); COLOR,URINE YELLOW (YELLOW); LEUKOCYTE ESTERASE ,URINE NEGATIVE (NEGATIVE); NITRITE, URINE NEGATIVE (NEGATIVE); UGLUCOSE NEGATIVE (NEGATIVE)
--- NOTE | 2021-10-01 21:31 | NUR ---
26 YO F BIBS W C/O OF UPPER RIGHT QUAD PAIN X LAST NIGH THAT RAD TO ENTIRE ABD, PAIN 11/24. DENIES N/V. PT STATES SHE HAS A HX OF GALLSTONES. A/O X4 AMBULATORY. NKDA MEDS: DENIES
--- NOTE | 2021-10-01 21:48 | NUR ---
ULTRASOUND AT BEDSIDE
--- NOTE | 2021-10-01 22:23 | NUR ---
Patient appears to be resting comfortably in bed. Vital Signs within normal limits. Respirations even and unlabored. PAIN 3/10
--- NOTE | 2021-10-01 22:44 | NUR ---
PT STATES HER PAIN HAS DECREASED AND IS RESTING COMFORTABLY
[2021-10-01] MEDS ORDERED: ACETAMINOPHEN 325 MG TAB PO PRN (23:10)
[2021-10-01] MEDS ORDERED: MORPHINE SULFATE 2 MG/ML SYR IVP PRN (23:10)
[2021-10-01] MEDS ORDERED: ONDANSETRON 4 MG/2 ML VIAL IVP PRN (23:10)
[2021-10-01] MEDS: NACL 0.9% 1,000 ML IV SCH (23:10)
[2021-10-02] MEDS ORDERED: ZOLPIDEM 5 MG TAB PO STA (00:48)
--- NOTE | 2021-10-02 00:55 | NUR ---
PT STATED SHE WAS HAVING DIFFICULTY SLEEPING. GUERREROD ORDERED AMBIEN
[2021-10-02 02:30] VITALS: BP 126/75
--- NOTE | 2021-10-02 02:30 | NUR ---
Patient will be admitted to [facility]. Admited to ICU. Will go to room 8. Belongings list completed. Report to RN.
--- NOTE | 2021-10-02 02:30 | NUR ---
Assumed pt care report received from DUCT INSTALLER at the bedside. Pt admitted to ICU room 8 awake alert oriented x4 follows command ambulatory denies pain vitals signs stable afebrile Education on care plan verbalized understanding , call light at reach bed in low position orientation to the unit visitation hours No home medications.and MRSA nares sent. Will continue to monitor and treat as per care plan
[2021-10-02 04:00] VITALS: BP 117/70
[2021-10-02 07:09] LABS: EOSINOPHILS % (AUTO) 0.4 % (0.0-4.0); HEMATOCRIT 27.8 % (36-48); HEMOGLOBIN 8.9 g/dL (12.0-16.0); LYMPHOCYTES # (AUTO) 0.9 K/uL (2.5-16.5); LYMPHOCYTES % (AUTO) 15.4 % (20.5-51.1); MEAN CORPUSCULAR HEMOGLOBIN 26 pg (27-31); MEAN CORPUSCULAR HGB CONC 32 g/dL (33-37); MEAN CORPUSCULAR VOLUME 79.7 fL (80-94); MONOCYTES # (AUTO) 0.2 K/uL (0.8-1.0); MONOCYTES % (AUTO) 3.6 % (1.7-9.3); NEUTROPHILS # (AUTO) 4.6 K/uL (1.8-7.7); NEUTROPHILS % (AUTO) 80.6 % (42.2-75.2); PLATELET COUNT (AUTO) 216 K/uL (140-450); RED BLOOD CELL COUNT(AUTO) 3.49 MIL/uL (4.20-5.40); RED CELL DISTRIBUTION WIDTH 18.1 % (11.6-13.7); WHITE BLOOD COUNT (AUTO) 5.7 K/uL (4.8-10.8)
--- NOTE | 2021-10-02 07:10 | NUR ---
Change of shift report given to Catie MORENO as at this time pt med surg status no problem encountered all through the shift no complain and no changes in care plan.
--- NOTE | 2021-10-02 07:15 | NUR ---
Received pt alert and oriented x4. Breathing even and unlabored. NPO at this time. Abd soft with active bowel sounds. Continent bowel and bladder. Peripheral IV 20 gauge on right AC intact and patent infusing NS@ 100ml/hr. Safety precautions in place.
[2021-10-02 08:00] VITALS: BP 143/63
[2021-10-02 08:15] LABS: ALBUMIN 2.9 g/dL (3.4-5.0); ANION GAP 11.6 (8-16); CARBON DIOXIDE 24.7 mmol/L (21-32); CREATININE 0.7 mg/dL (0.6-1.3); PHOSPHORUS 3.1 mg/dL (2.5-4.9); POTASSIUM 4.3 mmol/L (3.5-5.1); TOTAL BILIRUBIN 1.3 mg/dL (0.0-1.0)
--- NOTE | 2021-10-02 08:25 | NUR ---
Transferred pt to room 119B via wheelchair. Pt able to ambulate without difficulty to bed. Report given to Lise. Pt denies any abdominal pain at this time.
--- NOTE | 2021-10-02 08:25 | NUR ---
PT ARRIVED AT UNIT VIA WHEELCHAIR, AMBULATED TO BED, TOLERATED WELL, NO DISTRESS NOTED, RECEIVED REPORT FROM DUDLEY MORENO. PT ON ROOM AIR, NO SOB NOTED, IV TO RIGHT AC 20G PATENT INTACT, INFUSING WELL. INITIAL ASSESSMENT DONE, ALL SAFETY PRECAUTION MET, VSS. WILL CONTINUE TO MONITOR.
[2021-10-02] MEDS: NACL 0.9% 1,000 ML IV SCH (10:52)
--- NOTE | 2021-10-02 14:51 | NUR ---
DC PLANNING SW MET WITH PT AT BEDSIDE TO COMPLETE ASSESSMENT. PT REPORTS RESIDING AT THE ADDRESS LISTED WITH FAMILY. PT IDENTIFIES DONTAE CAMEJO (MOTHER) EMERGENCY CONTACT AND MDM. PATIENT DENIED HAVING AD IN PLACE AND ACCEPTED AD OFFERED BY [facility]. PATIENT REPORTS MEETING WITH PCP NEEDED; LAST VISIT 2020. PATIENT DENIES TAKING MEDICATION AT THIS TIME AND DENIES BARRIERS IN ACCESSING NEEDED MEDICATIONS. PATIENT REPORTED RECEIVING MEDICATION FROM [facility] ON IN [place], WHEN NEEDED. PT REPORTS [employer]. PT IS INDEPENDENT IN ALL ACTIVITIES. PT DENIES MH/SA HX. PT DENIES HX OF HH AND DIALYSIS TX. PATIENT REPORTS DC PLAN IS TO RETURN HOME WITH PARTNER PROVIDING TRANSPORTATION AND AIDING IN CARE, IF REQUIRED. SW INQUIRED ON ADDITIONAL RESOURCES NEEDED, PATIENT DECLINED AT THIS TIME . Addendum: 10/06/21 at 1203 by Tk MELCHOR [facility]EEK OUTREACHED TO PATIENTS PCP OFFICE AT [phone]. [facility]EEK SPOKE WITH ABBEY, APPT WAS SCHEDULED FOR 10/08/21 AT 9:[address] CAVAZOS, AT [address] [facility]. [facility]EEK LEFT FOR PATIENT PROVIDING APPT DETAILS THAT INCLUDED; DATE, TIME, ADDRESS, PHONE NUMBER AND
[2021-10-02] MEDS: LACTATED RINGERS 1,000 ML IV SCH ×2 (15:02→21:05)
--- NOTE | 2021-10-02 15:05 | NUR ---
PATIENT HAS BEEN SCREENED AND CATEGORIZED LOW NUTRITION RISK. PATIENT WILL BE SEEN WITHIN 7 DAYS OF ADMISSION. 10/08/[address]
[2021-10-02] MEDS: HYDROmorphone 1 MG/ML AMP IVP PRN (15:07)
--- NOTE | 2021-10-02 15:15 | NUR ---
PT C/O THAT SHE IS UNABLE TO SLEEP WITH THE IV TO THE RIGHT AC. IV FLUSHING, ASYMPTOMATIC, WNL. NEW IV INSERTED TO RIGHT HAND 22G. PT TOLERATED WELL, WILL CONTINUE TO MONITOR.
[2021-10-02 16:00] VITALS: BP 104/40
--- NOTE | 2021-10-02 17:40 | NUR ---
DR TRIPATHI AT BEDSIDE TALKING TO PT, STATED TO ORDER CT ABD PELVIS WITHOUT CONTRAST, HIDA SCAN AND MRCP. WILL CONTINUE WITH ORDERS.
--- NOTE | 2021-10-02 19:09 | NUR ---
10/02/21 1800 PT WITHIN NORMAL DEVELOPMENTAL AGE. [id number] Addendum: 10/02/21 at 1910 by Lise Obrien RN WRONG NOTE
--- NOTE | 2021-10-02 19:10 | NUR ---
ENDORSED PT TO SHEEP CLIPPER NURSE FOR CONTINUOUS OF CARE
--- NOTE | 2021-10-02 19:15 | NUR ---
RECEIVED PT FROM DAY NURSE FOR CONTINUITY OF CARE.PT AWAKE, ALERT AND ORIENTED X 4, ON ROOM AIR.NO DISTRESS NOTED. PT ON ROOM AIR, NO SOB NOTED, IV TO RIGHT AC 20G, R H G22.JUST ARRIVED FROM CT VIA WC, INFUSING WELL.CALL LIGHT WITHIN REACH ALL SAFETY PRECAUTION MET. WILL CONTINUE TO MONITOR.
--- NOTE | 2021-10-02 21:37 | NUR ---
PT ASLEEP, VISIBLE CHEST RISE AND FALL NOTED. NO DISTRESS NOTED. ALL PRECAUTIONS IN PLACE. WILL CONTINUE TO MONITOR.
[2021-10-03] VITALS: BP 114/57
--- NOTE | 2021-10-03 | NUR ---
IV REMOVED ON R AC.CATHETER INTACT.
--- NOTE | 2021-10-03 02:41 | NUR ---
PT ASLEEP. VISIBLE CHEST RISE AND FALL NOTED. NO DISTRESS NOTED. ALL PRECAUTIONS IN PLACE. WILL CONTINUE TO MONITOR.
[2021-10-03] MEDS: LACTATED RINGERS 1,000 ML IV SCH ×4 (03:45→23:45)
--- NOTE | 2021-10-03 04:00 | NUR ---
VITALS STABLE, PT ASLEEP. RESPIRATIONS EQUAL AND UNLABORED, NO DISTRESS NOTED. ALL PRECAUTIONS IN PLACE. WILL CONTINUE TO MONITOR.
[2021-10-03] MEDS: HYDROmorphone 1 MG/ML AMP IVP PRN ×3 (04:53→22:09)
--- NOTE | 2021-10-03 05:23 | NUR ---
PRE OP EKG PERFORMED AND REPORTED TO RN
[2021-10-03 07:13] LABS: BASOPHILS % (AUTO) 0.2 % (0.0-2.0); EOSINOPHILS # (AUTO) 0.1 K/uL (0-0.4); EOSINOPHILS % (AUTO) 1.8 % (0.0-4.0); HEMATOCRIT 26.7 % (36-48); HEMOGLOBIN 8.6 g/dL (12.0-16.0); LYMPHOCYTES # (AUTO) 1.3 K/uL (2.5-16.5); LYMPHOCYTES % (AUTO) 21.4 % (20.5-51.1); MEAN CORPUSCULAR HEMOGLOBIN 26 pg (27-31); MEAN CORPUSCULAR HGB CONC 32 g/dL (33-37); MEAN CORPUSCULAR VOLUME 79.6 fL (80-94); MONOCYTES # (AUTO) 0.3 K/uL (0.8-1.0); NEUTROPHILS # (AUTO) 4.5 K/uL (1.8-7.7); NEUTROPHILS % (AUTO) 72.6 % (42.2-75.2); PLATELET COUNT (AUTO) 188 K/uL (140-450); RED BLOOD CELL COUNT(AUTO) 3.35 MIL/uL (4.20-5.40); RED CELL DISTRIBUTION WIDTH 18.2 % (11.6-13.7); WHITE BLOOD COUNT (AUTO) 6.2 K/uL (4.8-10.8)
--- NOTE | 2021-10-03 07:25 | NUR ---
PT IS STABLE. NO ACUTE THROUGHOUT THE NIGHT. NO S/SX OF DISTRESS. ALL NEEDS ATTENDED. NO COMPLAINS OF PAIN AT THIS MOMENT. ALL PRECAUTIONS IN PLACE. CALL LIGHT WITHIN REACH. WILL ENDORSE TO AM SHIFT NURSE.
--- NOTE | 2021-10-03 07:30 | NUR ---
RECEIVED BEDSIDE REPORT FROM PACS SPECIALIST NURSE FOR CONTINUOUS OF CARE, PT RESTING, NO DISTRESS NOTED, IV TO RIGHT HAND 22G PATENT INTACT, INFUSING LR @ 150ML/HR, INFUSING WELL. PT ON ROOM AIR, NO SOB NOTED, INITIAL ASSESSMENT DONE, ALL SAFETY PRECAUTION MET, CALL LIGHT WITHIN REACH, WILL CONTINUE TO MONITOR.
[2021-10-03 07:31] LABS: ALBUMIN 2.8 g/dL (3.4-5.0); ANION GAP 11.3 (8-16); CARBON DIOXIDE 25.6 mmol/L (21-32); CREATININE 0.6 mg/dL (0.6-1.3); POTASSIUM 3.9 mmol/L (3.5-5.1); TOTAL BILIRUBIN 0.7 mg/dL (0.0-1.0)
--- NOTE | 2021-10-03 07:51 | NUR ---
RECEIVED PHONE CALL FROM NUCLEAR MED STAFF DANIELA, STATED THAT SHE HAS NO TECH, HIDA SCAN WILL BE DONE AT 1700 TODAY. TO KEEP PT NPO AND NO OPIOIDS STARTING AT 1200.
[2021-10-03 08:00] VITALS: BP 110/54
--- NOTE | 2021-10-03 08:41 | NUR ---
DC PLANNING: ORDER FOR MRCP RECEIVED, FAXED TO JERMAINE AT [facility] FOR APPROVAL ([phone]). CM ALSO FAXED ORDERS AND PACKET TO [facility], SPOKE WITH ANA LAURA, THE TECH COMES IN AT 11 AM. CM WILL FOLLOW UP. Addendum: 10/03/21 at 1152 by Kelsey Whelan CM DC PLANNING: PATIENT SCHEDULED FOR 1430 MRCP, AUTH FOR [facility] FROM [facility] [id number], AUTH FOR [facility] FROM [facility] [id number]. AUTH NUMBER GIVEN TO ADMITTING AT [facility], [facility] SUPERVISOR ENDORSED TO RADIOLOGY AT [place]. CM WILL FAX MRI FORM ONCE IT'S COMPLETED TO [facility]. [facility] SUPER[facility] TIME WILL BE [phone], WAIT AND RETURN. CM WILL FOLLOW.
--- NOTE | 2021-10-03 11:40 | NUR ---
PT C/O PAIN , PRN MEDICATION ORDERED GIVEN, PT TOLERATED WELL, WILL CONTINUE TO MONITOR.
--- NOTE | 2021-10-03 13:30 | NUR ---
PT BEING PICKED UP BY [facility] TO MRCP. PT LEFT IN STABLE CONDITION.
--- NOTE | 2021-10-03 15:02 | NUR ---
ENDORSED PT TO RN ANDRÉS FOR CONTINUOUS OF CARE.
--- NOTE | 2021-10-03 15:05 | NUR ---
RECEIVED REPORT FROM DAYSHIFT NURSEMIRELLA. PT OFF UNIT TO MRCP AT [facility].
[2021-10-03 16:00] VITALS: BP 119/62
--- NOTE | 2021-10-03 16:05 | NUR ---
PT BACK FROM MRCP AT [facility]. PT A/O X4. ABLE TO MAKE NEEDS KNOWN. C/O HEADACHE. SEE EMAR. NO SOB NOTED. ON RA. RR EVEN & UNLABORED. PT NPO. R HAND #22. PLAN FOR HIDA SCAN AND POSSIBLE LAP CHOLECYSTECTOMY TODAY. WILL FOLLOW-UP. NEEDS ALL MET AT THIS TIME. SAFETY MEASURES IN PLACE.
--- NOTE | 2021-10-03 19:10 | NUR ---
ENDORSED PT TO NIGHTSKYFT NURSE GRACIELA. PT STABLE.
[2021-10-04] VITALS: BP 101/40
[2021-10-04] MEDS: LACTATED RINGERS 1,000 ML IV SCH ×3 (05:42→20:22)
[2021-10-04 07:14] LABS: ALBUMIN 3.1 g/dL (3.4-5.0); ANION GAP 13.1 (8-16); BASOPHILS % (AUTO) 0.2 % (0.0-2.0); CARBON DIOXIDE 22.6 mmol/L (21-32); CREATININE 0.6 mg/dL (0.6-1.3); EOSINOPHILS # (AUTO) 0.1 K/uL (0-0.4); EOSINOPHILS % (AUTO) 1.3 % (0.0-4.0); HEMOGLOBIN 8.4 g/dL (12.0-16.0); LYMPHOCYTES # (AUTO) 1.1 K/uL (2.5-16.5); LYMPHOCYTES % (AUTO) 17.1 % (20.5-51.1); MEAN CORPUSCULAR HEMOGLOBIN 25 pg (27-31); MEAN CORPUSCULAR HGB CONC 32 g/dL (33-37); MONOCYTES # (AUTO) 0.3 K/uL (0.8-1.0); MONOCYTES % (AUTO) 4.8 % (1.7-9.3); NEUTROPHILS % (AUTO) 76.6 % (42.2-75.2); PLATELET COUNT (AUTO) 192 K/uL (140-450); POTASSIUM 3.7 mmol/L (3.5-5.1); RED BLOOD CELL COUNT(AUTO) 3.29 MIL/uL (4.20-5.40); TOTAL BILIRUBIN 0.7 mg/dL (0.0-1.0); WHITE BLOOD COUNT (AUTO) 6.5 K/uL (4.8-10.8)
[2021-10-04] MEDS: HYDROmorphone 1 MG/ML AMP IVP PRN ×5 (07:56→12:30)
[2021-10-04 08:00] VITALS: BP 124/63
--- NOTE | 2021-10-04 08:00 | NUR ---
GOT REPORT FROM THE NIGHT NURSE, PT IS SLEEPING,NO SOB.[id number]
[2021-10-04] MEDS ORDERED: BUPIVACAINE-MPF 0.25% 30 ML VIAL INJ ONE (10:08)
[2021-10-04] MEDS ORDERED: LIDOCAINE/EPI MPF 1%1:200000 30 ML VIAL INJ ONE (10:08)
[2021-10-04] MEDS ORDERED: fentaNYL citrate 0.05 MG/ML VIAL ONE (10:11)
[2021-10-04] MEDS ORDERED: ONDANSETRON 4 MG/2 ML VIAL IVP PRN (10:20)
[2021-10-04] MEDS ORDERED: LACTATED RINGERS 1,000 ML IV SCH (10:20)
[2021-10-04] MEDS ORDERED: MEPERIDINE 25 MG/ML SYR IVP PRN (10:20)
[2021-10-04] MEDS ORDERED: ONDANSETRON 4 MG/2 ML VIAL ONE (10:30)
[2021-10-04] MEDS ORDERED: PROPOFOL 200 MG/20 ML VIAL IV ONE (10:30)
[2021-10-04] MEDS ORDERED: SUGAMMADEX SODIUM 200 MG/2 ML VIAL IV ONE ×2 (10:30→11:10)
[2021-10-04] MEDS ORDERED: SEVOFLURANE 250 ML BTL INH ONE (10:30)
[2021-10-04] MEDS ORDERED: DEXAMETHASONE 4 MG/ML VIAL ONE (10:30)
[2021-10-04] MEDS ORDERED: ROCURONIUM 50 MG/5 ML VIAL IV ONE (10:30)
--- NOTE | 2021-10-04 10:51 | NUR ---
PT IS IN [id number]
[2021-10-04] MEDS ORDERED: HYDROmorphone PFS 2 MG/ML SYR ONE (12:06)
[2021-10-04] MEDS ORDERED: MORPHINE SULFATE 2 MG/ML SYR IVP PRN (12:10)
[2021-10-04] MEDS ORDERED: ONDANSETRON 4 MG/2 ML VIAL IV PRN (12:10)
[2021-10-04] MEDS ORDERED: HYDROcodone/APAP 5/325 MG 1 TAB TAB PO PRN (12:10)
--- NOTE | 2021-10-04 13:00 | NUR ---
PT BACK FROM SURGERY. [id number]
[2021-10-04] MEDS ORDERED: HYDROmorphone 1 MG/ML AMP IVP PRN (13:05)
[2021-10-04] MEDS: MORPHINE SULFATE 4 MG/ML SYR IV PRN ×3 (13:11→23:50)
[2021-10-04 16:00] VITALS: BP 127/70
[2021-10-04] MEDS: FERROUS SULFATE 325 MG TABEC PO SCH (17:10)
[2021-10-04 20:00] VITALS: BP 106/49
--- NOTE | 2021-10-04 20:26 | NUR ---
PT VERBALIZED HAVING PAIN. PT INFORMED THAT SHE HAD TYLENOL 650MG AT ABOUT 1600 TODAY AND SHE IS ASKING FOR MORE PAIN MEDICATION A LITTLE BEYOND FOUR HOURS. IT WAS SUGGESTED TO PT THAT ONE NORCO 5/325MG TABLET MIGHT HOLD HER OVER FROM PAIN A LITTLE LONGER. PT AGREED, BUT STATED: "AFTER HE (PT'S VISITOR) LEAVES I'LL CALL AND ASK FOR PAIN MEDICINE."
--- NOTE | 2021-10-04 23:50 | NUR ---
MORPHINE 2MG ADMINISTERED TO PT FOR C/O PAIN. PT WAS MEDICATED EARLIER WITH NORCO 5/325MG W MARGINAL EFFECTIVENESS.
[2021-10-05] MEDS: LACTATED RINGERS 1,000 ML IV SCH ×2 (02:39→09:05)
[2021-10-05] MEDS: MORPHINE SULFATE 4 MG/ML SYR IV PRN ×2 (05:23→10:46)
[2021-10-05 05:57] LABS: BASOPHILS % (AUTO) 0.3 % (0.0-2.0); EOSINOPHILS % (AUTO) 0.1 % (0.0-4.0); HEMATOCRIT 27.2 % (36-48); HEMOGLOBIN 8.7 g/dL (12.0-16.0); LYMPHOCYTES # (AUTO) 0.9 K/uL (2.5-16.5); LYMPHOCYTES % (AUTO) 11.5 % (20.5-51.1); MEAN CORPUSCULAR HEMOGLOBIN 26 pg (27-31); MEAN CORPUSCULAR HGB CONC 32 g/dL (33-37); MEAN CORPUSCULAR VOLUME 80.9 fL (80-94); MONOCYTES # (AUTO) 0.5 K/uL (0.8-1.0); NEUTROPHILS # (AUTO) 6.6 K/uL (1.8-7.7); NEUTROPHILS % (AUTO) 82.1 % (42.2-75.2); PLATELET COUNT (AUTO) 254 K/uL (140-450); RED BLOOD CELL COUNT(AUTO) 3.36 MIL/uL (4.20-5.40); RED CELL DISTRIBUTION WIDTH 17.7 % (11.6-13.7)
[2021-10-05 06:52] LABS: ANION GAP 13.2 (8-16); CREATININE 0.6 mg/dL (0.6-1.3); POTASSIUM 4.2 mmol/L (3.5-5.1); TOTAL BILIRUBIN 0.3 mg/dL (0.0-1.0)
--- NOTE | 2021-10-05 07:17 | NUR ---
PT MEDICATED W MORPHINE 4MG AT 0523 FOR C/O PAIN. FQ=058/54, P=89, RR=20. RECHECK OF PT STATUS AT THIS TIME SHOWED PT RELAXED AND TALKING W FAMILY ON CELLPHONE. PT A+O*NPTE AND W/O APPEARANCE OF GROGGINESS. PT ALSO DENIED ANY PAIN. RESPIRATIONS REGULAR, EVEN, AND UNLABORED.
--- NOTE | 2021-10-05 07:20 | NUR ---
RECEIVED REPORT FROM NIGHTSDEFT NURSE SHERI FOR CONTINUITY OF CARE. PT IN STABLE CONDITION, CURRENTLY ASLEEP. PT A/OX4, BREATHING EVEN, REGULAR, AND UNLABORED ON ROOM AIR. PT IS CONTINENT OF THE BOWEL AND BLADDER, AND AMBULATORY WITH ASSISTANCE. ABDOMINAL INCISIONS ARE CLEAN, DRY AND INTACT, WITH DERMABOND ON INCISIONS. PT DENIES PAIN AT THIS TIME, STATED ABDOMINAL TENDERNESS UPON PALPATION. IV IS CLEAN, DRY AND PATENT RUNNING LACTATED RINGERS AT 150ML/HR. NO SIGNS OF PAIN OR DISTRESS NOTED AT THIS TIME.
[2021-10-05 08:00] VITALS: BP 130/71
[2021-10-05] MEDS: FERROUS SULFATE 325 MG TABEC PO SCH (08:50)
--- NOTE | 2021-10-05 10:46 | NUR ---
PT COMPLAINED OF SEVERE PAIN IN ABDOMEN AFTER AMBULATING TO BATHROOM. MEDICATED PT WITH PRN MORPHINE.
--- NOTE | 2021-10-05 12:20 | NUR ---
CLARIFIED DISCHARGE ORDER WITH MD, PT TO BE DISCHARGED TODAY. EDUCATED PT, PT VERBALIZED UNDERSTANDING.
[2021-10-05 12:38] VITALS: BP 130/71
--- NOTE | 2021-10-05 13:30 | NUR ---
REVIEWED AND DISCUSSED PT DISCHARGE PAPERWORK. PT WAS ABLE TO VERBALIZE UNDERSTANDING AND SIGN ALL PAPERWORK. PT IN STABLE CONDITION, TRANSPORTED TO [facility] VIA WHEELCHAIR. PT TRANSPORTED HOME VIA POV WITH SPOUSE.
== END 2021-10-05 14:37 | disposition home or self-care (01) | DRG 263 ==
LOC: MED 19:39 → MMU 23:17 → MTU 10-02 00:34 → MMU 10-02 00:40 → MIC 10-02 02:05 → MTU 10-02 08:30
PROVIDERS: ADMIT Internal Medicine; ATTEND Internal Medicine
PROC: 0FT44ZZ Resection of Gallbladder, Percutaneous Endoscopic Approach (ICD-10-PCS; principal; 2021-10-04 10:00)
DX: K80.71 Calculus of gallbladder and bile duct without cholecystitis with obstruction (principal); K85.10 Biliary acute pancreatitis without necrosis or infection; K76.0 Fatty (change of) liver, not elsewhere classified; E88.09 Other disorders of plasma-protein metabolism, not elsewhere classified; Z68.43 Body mass index [BMI] 50.0-59.9, adult; E66.01 Morbid (severe) obesity due to excess calories; D50.9 Iron deficiency anemia, unspecified; Z20.822 Contact with and (suspected) exposure to COVID-19; Z98.891 History of uterine scar from previous surgery
CPT/HCPCS: 36415; 74150; 76705; 78445; 80053; 81003; 82374; 82728; 83540; 83690; 83735; 84100; 84702; 85025; 85610; 85730; 87081; 96361; 96374; 96375; 96376; 99285; J0696; J1100; J1170; J1644; J1885; J2001; J2270; J2405; J2704; J3010; J3490; J7030; J7060; Q0092

== ENCOUNTER 2023-04-05 23:20 | Emergency (ER) | payer OTHER ==
[~2023-04-05] VITALS: Ht 157.5 cm; Wt 131.5 kg
[~2023-04-05 23:20] MED LIST changes: -ACET-8386 PO; +ACET-8905 PO; -ACET-9527 PO; -IBUP-2213 PO; -ONDA-188 PO; -ONDA4TAB PO
[2023-04-05 23:30] VITALS: BP 129/70; PULSE 78; RESP 16; TEMP 96.8; O2SAT 99
[2023-04-05 23:40] VITALS: O2SAT 99
[2023-04-06 01:05] LABS: BASOPHILS % (AUTO) 0.4 % (0.0-2.0); EOSINOPHILS # (AUTO) 0.1 K/uL (0-0.4); EOSINOPHILS % (AUTO) 0.7 % (0.0-4.0); HEMATOCRIT 32.9 % (36-48); HEMOGLOBIN 11.1 g/dL (12.0-16.0); LYMPHOCYTES # (AUTO) 2.2 K/uL (2.5-16.5); LYMPHOCYTES % (AUTO) 30.1 % (20.5-51.1); MEAN CORPUSCULAR HEMOGLOBIN 29 pg (27-31); MEAN CORPUSCULAR HGB CONC 34 g/dL (33-37); MEAN CORPUSCULAR VOLUME 87.4 fL (80-94); MONOCYTES # (AUTO) 0.5 K/uL (0.8-1.0); MONOCYTES % (AUTO) 6.9 % (1.7-9.3); NEUTROPHILS # (AUTO) 4.6 K/uL (1.8-7.7); NEUTROPHILS % (AUTO) 61.9 % (42.2-75.2); PLATELET COUNT (AUTO) 244 K/uL (140-450); RED BLOOD CELL COUNT(AUTO) 3.76 MIL/uL (4.20-5.40); RED CELL DISTRIBUTION WIDTH 14.4 % (11.6-13.7); WHITE BLOOD COUNT (AUTO) 7.4 K/uL (4.8-10.8)
[2023-04-06 01:18] LABS: ALBUMIN 3.3 g/dL (3.4-5.0); ANION GAP 8.3 (8-16); CALCIUM 8.6 mg/dL (8.5-10.1); CARBON DIOXIDE 28.7 mmol/L (21-32); CREATININE 0.6 mg/dL (0.6-1.3); TOTAL BILIRUBIN 0.2 mg/dL (0.0-1.0)
[2023-04-06 01:24] LABS: APPEARANCE,URINE SL CLOUDY (CLEAR); BILIRUBIN,URINE NEGATIVE (NEGATIVE); BLOOD, URINE TRACE-I (NEGATIVE); COLOR,URINE YELLOW (YELLOW); LEUKOCYTE ESTERASE ,URINE TRACE (NEGATIVE); NITRITE, URINE NEGATIVE (NEGATIVE); PH,URINE 6.5 (5.0-9.0); PROTEIN,URINE NEGATIVE (NEGATIVE); UGLUCOSE NEGATIVE (NEGATIVE); UROBILINOGEN,URINE 0.2 EU/dL (0.2 - 1)
[2023-04-06] MEDS ORDERED: DICYCLOMINE HCL LIQUID 10 MG/5 ML UDC ONE (01:34)
[2023-04-06] MEDS ORDERED: ALUMINUM HYD/MAG/SIMETHICONE 30 ML UDC ONE (01:34)
[2023-04-06 01:42] LABS: BACTERIA,URINE 10-30 (MOD) /HPF (None Seen); MUCUS,URINE 1+ /LPF (None Seen); RBC,URINE 0-5 /HPF (0-5)
[2023-04-06] MEDS: FAMOTIDINE 20 MG TAB PO ONE (01:52)
[2023-04-06] MEDS: DICYCLOMINE HCL LIQUID 20 MG, ALUMINUM HYD/MAG/SIMETHICONE 30 ML, LIDOCAINE VISCOUS 2% ... PO ONE (01:52)
[2023-04-06] MEDS ORDERED: CEPH250C16 PO (02:08)
[2023-04-06] MEDS ORDERED: FAMO-90 PO (02:08)
[2023-04-06] MEDS ORDERED: ALUM355S59 PO (02:08)
[2023-04-06] MEDS ORDERED: ACET-10509 PO (02:09)
[2023-04-06] MEDS ORDERED: ONDA-188 SL (02:13)
== END 2023-04-06 02:30 | disposition home or self-care (01) ==
LOC: MED 23:20
DX: N39.0 Urinary tract infection, site not specified (principal); R11.0 Nausea; Z90.49 Acquired absence of other specified parts of digestive tract; Z79.899 Other long term (current) drug therapy
CPT/HCPCS: 36415; 80053; 81001; 81025; 83690; 85025; 87086; 99283